=== PATIENT | female | born 1990 | race Caucasian/White ===

== ENCOUNTER 2018-04-25 12:42 | Emergency (ER) | payer MEDICAID ==
[2018-04-25] MEDS ORDERED: ACETAMINOPHEN 325 MG TABLET PO ONE (13:03)
[2018-04-25] MEDS ORDERED: ONDANSETRON 4 MG TAB.RAPDIS PO ONE (13:04)
--- NOTE | 2018-04-25 13:05 | ER Document Report ---
ED Medical Screen (RME) - General Chief Complaint: Vaginal Bleeding Stated Complaint: POSSIBLE MISCARRIAGE Time Seen by Provider: 04/25/18 12:56 Notes: RAPID MEDICAL EVALUATION DISCLOSURE I have seen this patient as part of a Rapid Medical Evaluation and, if applicable, placed any initially appropriate orders. The patient will be seen and fully evaluated, including a full history and physical exam, by a provider ( in Main ED or Fast Track) when a room becomes available. 27-year-old female here with complaints of vaginal bleeding that has been ongoing for the past 1 month with lower abdominal cramping however the bleeding increased 2 days ago but then dramatically increased again early this morning and is having some lightheadedness. She has gone through 6 pads in the last 6 hours and has fully soaked them. She was diagnosed with a miscarriage, via ultrasound, this past Thursday at her OBs office in [place]. She was supposed to have a D&C performed but when she called the doctor on Thursday to schedule this, they cannot do it until this upcoming Thursday. EXAM CTAB RRR Minimal lower quadrant TTP TRAVEL OUTSIDE OF THE [place] IN LAST 30 DAYS: No - Related Data Allergies/Adverse Reactions: latex Allergy (Verified 04/25/18 12:44) Hives tramadol Adverse Reaction (Verified 04/25/18 12:44) Swelling of tongue Past Medical History - Social History Chew tobacco use (# tins/day): No Frequency of alcohol use: Occasional Drug Abuse: None Renal/ Medical History: Denies: Hx Peritoneal Dialysis Past Surgical History: Reports: Hx Orthopedic Surgery Physical Exam - Vital signs Vitals: Temp Pulse Resp BP Pulse Ox 98.0 F 89 16 134/72 H 99 04/25/18 12:48 04/25/18 12:48 04/25/18 12:48 04/25/18 12:48 04/25/18 12:48 Course - Vital Signs Vital signs: Temp Pulse Resp BP Pulse Ox 98.0 F 89 16 134/72 H 99 04/25/18 12:48 04/25/18 12:48 04/25/18 12:48 04/25/18 12:48 04/25/18 12:48
--- NOTE | 2018-04-25 13:38 | ER Document Report ---
ED GI/ - General Chief Complaint: Vaginal Bleeding Stated Complaint: POSSIBLE MISCARRIAGE Time Seen by Provider: 04/25/18 12:56 Mode of Arrival: Ambulatory Information source: Patient Notes: 27-year-old female is with twins that lost her heartbeat at weeks which was this past Thursday. She was scheduled for reevaluation on Thursday for possible D&C with [facility] regional OB/ [facility] RESOURCE TECHNICIAN. She had intermittent spotting this week but became very heavy with severe cramps yesterday. Today she is bleeding through a full size pad every 20 minutes. She feels lightheaded when she sitting. She did eat a pancake a little while ago. TRAVEL OUTSIDE OF THE [place] IN LAST 30 DAYS: No - Related Data Allergies/Adverse Reactions: latex Allergy (Verified 04/25/18 12:44) Hives tramadol Adverse Reaction (Verified 04/25/18 12:44) Swelling of tongue Past Medical History - General Information source: Patient - Social History Smoking Status: Former Smoker Chew tobacco use (# tins/day): No Frequency of alcohol use: Occasional Drug Abuse: None Lives with: Spouse/Significant other Family History: Reviewed & Not Pertinent Patient has suicidal ideation: No Patient has homicidal ideation: No - Medical History Medical History: Negative Renal/ Medical History: Denies: Hx Peritoneal Dialysis Past Surgical History: Reports: Hx Orthopedic Surgery Review of Systems - Review of Systems Constitutional: No symptoms reported EENT: No symptoms reported Cardiovascular: No symptoms reported Respiratory: No symptoms reported Gastrointestinal: No symptoms reported Genitourinary: No symptoms reported Female Genitourinary: See HPI Musculoskeletal: No symptoms reported Skin: No symptoms reported Hematologic/Lymphatic: No symptoms reported Neurological/Psychological: No symptoms reported Physical Exam - Vital signs Vitals: Temp Pulse Resp BP Pulse Ox 98.0 F 89 16 134/72 H 99 04/25/18 12:48 04/25/18 12:48 04/25/18 12:48 04/25/18 12:48 04/25/18 12:48 Interpretation: Normal - General General appearance: Appears well, Alert - HEENT Head: Normocephalic, Atraumatic Eyes: Normal Pupils: PERRL - Respiratory Respiratory status: No respiratory distress Chest status: Nontender Breath sounds: Normal Chest palpation: Normal - Cardiovascular Rhythm: Regular Heart sounds: Normal auscultation Murmur: No - Abdominal Inspection: Normal Distension: No distension Bowel sounds: Normal Tenderness: Nontender. No: Tender Organomegaly: No organomegaly - Genitourinary External exam: Other - Blood Speculum exam: Cervix open - POC bulging from the office Vaginal bleeding: Moderate Notes: After the POC was removed with ring forceps the office closed and there was minimal bleeding the cramping subsided minimal cramping intermittently at this time. - Back Back: Normal, Nontender - Extremities General upper extremity: Normal inspection, Nontender, Normal color, Normal ROM , Normal temperature General lower extremity: Normal inspection, Nontender, Normal color, Normal ROM , Normal temperature, Normal weight bearing. No: Rakesh's sign - Neurological Neuro grossly intact: Yes Cognition: Normal Orientation: AAOx4 Mansi Coma Scale Eye Opening: Spontaneous Mansi Coma Scale Verbal: Oriented Ruth Coma Scale Motor: Obeys Commands Mansi Coma Scale Total: 15 Speech: Normal Motor strength normal: LUE, RUE, LLE, RLE Sensory: Normal - Psychological Associated symptoms: Normal affect, Normal mood - Skin Skin Temperature: Warm Skin Moisture: Dry Skin Color: Normal Course - Re-evaluation Re-evalutation: 04/25/18 14:00 Products of conception which looks like 2 gestational sacs almost completely out of the office, ring forceps used with minimal bleeding post explosion. Cramping is now intermittent and not as severe. 04/25/18 15:10 Ultrasound shows no IUP's or retained products. Quantitative is 5986. 04/25/18 15:[address] Santiago because the patient and her significant other were interested in ending out why the twin pregnancies in utero on Thursday. There is genetic testing that can be done but it is not usually ordered through the emergency department nor is it covered by insurance. The patient in significant other did not want to have this done they want to take the products of conception home. Labor and delivery nurses stated that if the is less than 20 weeks they are allowed to take the POC home. Urinalysis is negative. Blood type is A+. I explained to the patient that she will need to still see her CABLE TOOL DRILLER in [place] on Thursday and bring all the information to them. They will want to follow her serum quantitative to 0. 04/25/18 15:16 - Vital Signs Vital signs: Temp Pulse Resp BP Pulse Ox 98.0 F 89 16 134/72 H 99 04/25/18 12:48 04/25/18 12:48 04/25/18 12:48 04/25/18 12:48 04/25/18 12:48 - Laboratory Result Diagrams: 04/25/18 13:27 04/25/18 13:27 Laboratory results interpreted by me: 04/25/18 04/25/18 04/25/18 13:27 13:27 14:45 WBC 13.1 H Seg Neutrophils % 81.8 H Lymphocytes % 11.1 L Absolute Neutrophils 10.7 H BUN 5 L Creatinine 0.51 L Beta HCG, Quant 5986.20 H Urine Blood LARGE H Urine Ascorbic Acid 20 H Discharge - Discharge Clinical Impression: Completed miscarriages of twins Condition: Good Disposition: HOME, SELF-CARE Instructions: Miscarriage ([facility]) Additional Instructions: Return to the emergency room any concerns See your CABLE TOOL DRILLER on Thursday and bring them all the information that I have given to you Motrin for pain Prescriptions: Ibuprofen [Motrin 800 mg Tablet] 800 mg PO Q8HP PRN #30 tablet PRN Reason: Forms: Return to Work
[2018-04-25 13:45] LABS: ABSOLUTE EOSINOPHILS # (AUTO) 0.1 10^3/uL (0.0-0.6); ABSOLUTE LYMPHOCYTES (AUTO) 1.5 10^3/uL (0.5-4.7); ABSOLUTE MONOCYTES (AUTO) 0.8 10^3/uL (0.1-1.4); ABSOLUTE NEUT (AUTO) 10.7 10^3/uL (1.7-8.2); BASOPHILS % (AUTO) 0.2 % (0-2); EOSINOPHILS % (AUTO) 0.7 % (0-6); HEMATOCRIT 37.9 % (36.0-47.0); HEMOGLOBIN 12.8 g/dL (12.0-15.5); LYMPHOCYTES % (AUTO) 11.1 % (13-45); MEAN CORPUSCULAR HEMOGLOBIN 30.3 pg (27.0-33.4); MEAN CORPUSCULAR HGB CONC 33.6 g/dL (32.0-36.0); MEAN CORPUSCULAR VOLUME 90 fl (80-97); MONOCYTES % (AUTO) 6.2 % (3-13); PLATELET COUNT 249 10^3/uL (150-450); RED BLOOD COUNT 4.21 10^6/uL (3.72-5.28); RED CELL DISTRIBUTION WIDTH 12.6 % (11.5-14.0); SEGMENTED NEUTROPHILS % (AUTO) 81.8 % (42-78); TOTAL CELLS COUNTED % (AUTO) 100 %; WHITE BLOOD COUNT 13.1 10^3/uL (4.0-10.5)
[2018-04-25] MEDS ORDERED: NORMAL SALINE 1000 ML 1,000 ML IV ONE (13:45)
[2018-04-25 13:57] LABS: ANION GAP 11 (5-19); BLOOD UREA NITROGEN 5 mg/dL (7-20); CALCIUM 9.5 mg/dL (8.4-10.2); CARBON DIOXIDE 25 mmol/L (22-30); CHLORIDE 105 mmol/L (98-107); GLUCOSE 80 mg/dL (75-110); POTASSIUM 3.9 mmol/L (3.6-5.0); SODIUM 141.3 mmol/L (137-145)
[2018-04-25] MEDS ORDERED: IBUPROFEN 800 MG TABLET PO ONE (15:05)
[2018-04-25 15:07] LABS: APPEARANCE,URINE CLEAR; BILIRUBIN,URINE NEGATIVE (NEGATIVE); COLOR,URINE YELLOW; GLUCOSE, URINE NEGATIVE (NEGATIVE); KETONES,URINE NEGATIVE (NEGATIVE); LEUKOCYTE ESTERASE,URINE NEGATIVE (NEGATIVE); NITRITE,URINE NEGATIVE (NEGATIVE); PROTEIN,URINE NEGATIVE (NEGATIVE); URINE SPECIFIC GRAVITY 1.012; UROBILINOGEN,URINE NEGATIVE mg/dL (<2.0)
--- NOTE | 2018-04-25 15:07 | RADIOLOGY REPORT (SQ) ---
EXAM DESCRIPTION: U/S OB TRANSVAGINAL W/O DOP COMPLETED DATE/TIME: 04/25/2018 2:55 pm REASON FOR STUDY: miscarriage? eval retained POC COMPARISON: None. TECHNIQUE: Transvaginal static and realtime grayscale images acquired of the pelvis. Additional evelio cted spectral and color Doppler images recorded. All images stored on PACs. BHC,986 LIMITATIONS: None. FINDINGS: UTERUS: No visualized intrauterine . RIGHT ADNEXA: Ovary not identified. No adnexal free fluid. No adnexal masses. LEFT ADNEXA: Normal ovary with normal vascular flow. No adnexal free fluid. No adnexal masses. FREE FLUID: None. OTHER: No other significant finding. IMPRESSION: NO VISUALIZED INTRA- OR EXTRAUTERINE . NO EVIDENCE OF RETAINED PRODUCTS. FOLLOW-UP ULTRASOUND AND SERIAL [facility] LEVELS STRONGLY RECOMMENDED TO ACCURATELY ASSESS STATU S. TECHNICAL DOCUMENTATION: JOB ID: [id number] [employer]- All Rights Reserved Reading location - IP/workstation name: [email or web address]
[2018-04-25 15:48] VITALS: BP 117/61
== END 2018-04-25 15:40 | disposition home or self-care (01) ==
LOC: ER 12:42
DX: O03.9 Complete or unspecified spontaneous abortion without complication (principal); Z91.040 Latex allergy status
CPT/HCPCS: 99284; 96360; 86900; 86901; 36415; 84702; 85025; 80048; 81001; 76817; J3490 ×2; J7030